=== PATIENT | male | born 2000 | race Two or more races ===

== ENCOUNTER 2021-01-03 12:49 | Emergency (ER) | payer OTHER ==
[2021-01-03] MEDS ORDERED: LORazepam 2 MG/ML VIAL IM STA (13:03)
--- NOTE | 2021-01-03 13:07 | ED Physician Documentation ---
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 He was aggressive at the scene and required restraint for transport to the hospital. Review of Systems Unable to obtain: Uncooperative PD PAST MEDICAL HISTORY - Past Medical History Cardiovascular: None Respiratory: None Neuro: None GI: None - Past Surgical History Past Surgical History: No - Present Medications Home Medications: Ambulatory Orders Medication Instructions Recorded Confirmed No Known Home Medications 01/03/21 01/03/21 - Allergies Allergies/Adverse Reactions: Allergies Allergy/AdvReac Type Severity Reaction Status Date / Time Penicillins Allergy Unknown Verified 01/03/21 15:36 - Living Situation Living Arrangement: reports: At home - Social History Substance Use and Type: Other (LSD) - Family History Family history: reports: Non contributory PD ED PE NORMAL - Vitals Vital signs reviewed: Yes (Tachycardic tachypneic and hypertensive) - General General: Well developed/nourished, Other (20-year-old male with a wide opened eye vacant stare repeatedly states L is D that was the. He is fighting restraints and periodically shouting.) - HEENT HEENT: Atraumatic, PERRL, EOMI - Neck Neck: Supple, no meningeal sign, No bony TTP - Cardiac Cardiac: RRR, No murmur - Respiratory Respiratory: No respiratory distress, Clear bilaterally - Abdomen Abdomen: Normal bowel sounds, Soft, Non tender, Non distended, No organomegaly - Back Back: No CVA TTP, No spinal TTP - Derm Derm: Normal color, Warm and dry, No rash - Extremities Extremities: No deformity, No edema - Neuro Neuro: Alert and oriented X 3, digital imaging technician 2-12 intact, No motor deficit, No sensory deficit, Normal speech Eye Opening: Spontaneous Motor: Localizes to Pain Verbal: Confused GCS Score: 13 - Psych Psych: Normal mood, Normal affect Results - Vitals Vitals: Vital Signs - 24 hr 01/03/21 01/03/21 01/03/21 12:59 13:45 14:00 Temperature 37.6 C Heart Rate 131 H 140 H 135 H Respiratory 29 H 16 18 Rate Blood Pressure 188/95 H 187/74 H 180/79 H O2 Saturation 100 99 99 01/03/21 01/03/21 01/03/21 14:21 14:45 15:30 Temperature 36.7 C Heart Rate 134 H 126 H 108 H Respiratory 14 18 18 Rate Blood Pressure 176/89 H 163/50 H 150/100 H O2 Saturation 100 99 99 Oxygen O2 Source Room air - Labs Labs: Laboratory Tests 01/03/21 01/03/21 01/03/21 13:22 13:22 13:22 WBC 11.8 H RBC 5.66 Hgb 15.9 Hct 48.5 MCV 85.7 MCH 28.1 MCHC 32.8 RDW 12.2 Plt Count 176 MPV 12.1 H Neut # (Auto) 10.5 H Lymph # (Auto) 0.6 L [place] # (Auto) 0.5 Eos # (Auto) 0.1 Baso # (Auto) 0.0 Absolute Nucleated RBC 0.00 Nucleated RBC % 0.0 Sodium 134 L Potassium 3.5 Chloride 99 L Carbon Dioxide 22 Anion Gap 13.0 BUN 12 Creatinine 1.1 Estimated GFR (MDRD) 85 L Glucose 171 H Calcium 9.8 Total Bilirubin 0.6 AST 44 H ALT 111 H Alkaline Phosphatase 81 Total Protein 7.5 Albumin 4.7 Globulin 2.8 Albumin/Globulin Ratio 1.7 Lipase 21 L TSH 1.61 Urine Color Urine Clarity Urine pH Ur Specific [place] Urine Protein Urine Glucose (UA) Urine Ketones Urine Occult Blood Urine Nitrite Urine Bilirubin Urine Urobilinogen Ur Leukocyte Esterase Urine RBC Urine WBC Ur Squamous Epith Cells Amorphous Sediment Urine Bacteria Urine Mucus Ur Microscopic Review Urine Culture Comments Salicylates < 6.0 Urine Opiates Screen Ur Oxycodone Screen Urine Methadone Screen Ur Propoxyphene Screen Acetaminophen < 10 L Ur Barbiturates Screen Ur Tricyclics Screen Ur Phencyclidine Scrn Ur Amphetamine Screen U Methamphetamines Scrn U Benzodiazepines Scrn Urine Cocaine Screen U Cannabinoids Screen Ethyl Alcohol < 5.0 01/03/21 14:25 WBC RBC Hgb Hct MCV MCH MCHC RDW Plt Count MPV Neut # (Auto) Lymph # (Auto) [place] # (Auto) Eos # (Auto) Baso # (Auto) Absolute Nucleated RBC Nucleated RBC % Sodium Potassium Chloride Carbon Dioxide Anion Gap BUN Creatinine Estimated GFR (MDRD) Glucose Calcium Total Bilirubin AST ALT Alkaline Phosphatase Total Protein Albumin Globulin Albumin/Globulin Ratio Lipase TSH Urine Color YELLOW Urine Clarity CLEAR Urine pH 6.0 Ur Specific [place] 1.010 Urine Protein 30 H Urine Glucose (UA) NEGATIVE Urine Ketones NEGATIVE Urine Occult Blood NEGATIVE Urine Nitrite NEGATIVE Urine Bilirubin NEGATIVE Urine Urobilinogen 0.2 (NORMAL) Ur Leukocyte Esterase NEGATIVE Urine RBC 0-5 Urine WBC 0-3 Ur Squamous Epith Cells RARE Squamous Amorphous Sediment Few Urine Bacteria Rare Urine Mucus Few Strands Ur Microscopic Review INDICATED Urine Culture Comments NOT INDICATED Salicylates Urine Opiates Screen NEGATIVE Ur Oxycodone Screen NEGATIVE Urine Methadone Screen NEGATIVE Ur Propoxyphene Screen NEGATIVE Acetaminophen Ur Barbiturates Screen NEGATIVE Ur Tricyclics Screen NEGATIVE Ur Phencyclidine Scrn NEGATIVE Ur Amphetamine Screen NEGATIVE U Methamphetamines Scrn NEGATIVE U Benzodiazepines Scrn NEGATIVE Urine Cocaine Screen NEGATIVE U Cannabinoids Screen NEGATIVE Ethyl Alcohol PD MEDICAL DECISION MAKING - ED course Complexity details: reviewed results, re-evaluated patient, considered differential, d/w patient ED course: He arrives to the emergency department continuing to fight his restraints. He is repeatedly saying LSD and he is not initially cooperative. He is administered a milligram of Ativan IM for chemical restraint of aggressive behavior. He is able to sleep briefly he awakens less disoriented and cooperati ve. He is accompanied now by his chief who is aware of his admission of use of LSD. He is no longer a threat to himself or to others and is not exhibiting aggressive behavior. He has been out of restraints and we will discharge him to the custody of his command. Departure - Departure Disposition: 01 Home, Self Care Clinical Impression: Substance abuse Instructions: ED Drug Abuse General Follow-Up: [facility] [Provider Group] Discharge Date/Time: 01/03/21 15:43 Face to Face for Restraints - Immediate Situation Face to Face Evaluation Date: 01/03/21 Face to Face Evaluation Time: 13:20 Restraint Situation: Locking Patient's Reactions to the Intervention: Physically safe - Behavioral Condition Attitude: Indifferent Behavior: Cooperative Orientation: Person, Place, Time, Situation Mood: Content Behavioral Condition Comments: recent dose of ativan seems to have helped patient's aggressive behavior. He is now cooperative. - Evaluation Review of Systems: 20-year-old male who appears to be responding to internal stimuli has a negative review of systems for illness in the past week. Pertinent History/Illicit Drugs/Medications/Results: 20-year-old male presents to the emergency department with confusion and psychosis which appears to be related to his stated ingestion of LSD. No other drugs of abuse are found in the patient's system on our tox screen. - Plan Need to Continue or Terminate Violent or Chemical Restraint: Following this [id number] confrontation the patient's restraints were eventually removed.
[2021-01-03 13:25] LABS: BASOPHILS % (AUTO) 0.3 %; EOSINOPHILS # (AUTO) 0.1 10^3/uL (0.0-0.7); EOSINOPHILS % (AUTO) 0.9 %; HCT - HEMATOCRIT 48.5 % (42.0-52.0); HGB - HEMOGLOBIN 15.9 g/dL (14.0-18.0); LYMPHOCYTES # (AUTO) 0.6 10^3/uL (1.5-3.5); LYMPHOCYTES % (AUTO) 5.2 %; MEAN CORPUSCULAR HEMOGLOBIN 28.1 pg (27.0-31.0); MEAN CORPUSCULAR HGB CONC 32.8 g/dL (32.0-36.0); MEAN CORPUSCULAR VOLUME 85.7 fL (80.0-94.0); MEAN PLATELET VOLUME 12.1 fL (7.4-11.4); MONOCYTES # (AUTO) 0.5 10^3/uL (0.0-1.0); NEUTROPHILS # (AUTO) 10.5 10^3/uL (1.5-6.6); NEUTROPHILS % (AUTO) 89.3 %; PLT - PLATELET COUNT 176 10^3/uL (130-450); RED BLOOD COUNT 5.66 10^6/uL (4.70-6.10); RED CELL DISTRIBUTION WIDTH 12.2 % (12.0-15.0); WHITE BLOOD COUNT 11.8 x10^3/uL (4.8-10.8)
[2021-01-03 13:41] LABS: ACETAMINOPHEN < 10 ug/mL (10-30); ALBUMIN 4.7 g/dL (3.2-5.5); ALBUMIN/GLOBULIN RATIO 1.7 (1.0-2.2); ALKALINE PHOSPHATASE 81 IU/L (42-121); ALT ALANINE AMINOTRANSFERASE 111 IU/L (10-60); AST ASPARTATE AMINOTRANSFERASE 44 IU/L (10-42); BILIRUBIN,TOTAL 0.6 mg/dL (0.2-1.0); BUN - BLOOD UREA NITROGEN 12 mg/dL (6-20); CALCIUM 9.8 mg/dL (8.5-10.3); CARBON DIOXIDE - CO2 22 mmol/L (21-32); CHLORIDE 99 mmol/L (101-111); CREATININE 1.1 mg/dL (0.6-1.2); ETOH - ETHANOL < 5.0 mg/dL; GFR - MDRD 85 (>89); GLUCOSE 171 mg/dL (70-100); LIPASE 21 U/L (22-51); POTASSIUM 3.5 mmol/L (3.5-5.0); SALICYLATE < 6.0 mg/dL; SODIUM 134 mmol/L (135-145); TOTAL PROTEIN 7.5 g/dL (6.7-8.2)
[2021-01-03 14:32] LABS: MUDS CUTOFF CONCENTRATIONS CUTOFF CONC BELOW:
[2021-01-03 14:36] LABS: BILIRUBIN,URINE NEGATIVE (NEGATIVE); GLUCOSE, URINE (UA) NEGATIVE (NEGATIVE); KETONES,URINE (UA) NEGATIVE (NEGATIVE); LEUKOCYTE ESTERASE, URINE NEGATIVE (NEGATIVE); NITRITE,URINE NEGATIVE (NEGATIVE); OCCULT BLOOD,URINE NEGATIVE (NEGATIVE); PROTEIN,URINE 30 mg/dL (NEGATIVE); UROBILINOGEN,URINE 0.2 (NORMAL) E.U./dL (NORMAL)
[2021-01-03 14:48] LABS: CLARITY,URINE CLEAR (CLEAR); WBC,URINE 0-3 /HPF (0-3)
[2021-01-03 14:49] LABS: AMORPHOUS SEDIMENT,UR Few /LPF; BACTERIA,URINE Rare /HPF (None Seen); MUCUS,URINE Few Strands; RBC,URINE 0-5 /HPF (0-5); SQUAMOUS EPITHELIAL CELL,UR RARE Squamous (<= Few)
[2021-01-03 14:50] LABS: AMPHETAMINE SCREEN,URINE NEGATIVE (NEGATIVE); BARBITURATE SCREEN,UR NEGATIVE (NEGATIVE); BENZODIAZEPINES SCREEN, URINE NEGATIVE (NEGATIVE); COCAINE SCREEN URINE NEGATIVE (NEGATIVE); METHADONE SCREEN, URINE NEGATIVE (NEGATIVE); METHAMPHETAMINES SCREEN, URINE NEGATIVE (NEGATIVE); OPIATE SCREEN, URINE NEGATIVE (NEGATIVE); OXYCODONE SCREEN, URINE NEGATIVE (NEGATIVE); PROPOXYPHENE SCREEN, URINE NEGATIVE (NEGATIVE); THC CANNABINOID SCREEN, URINE NEGATIVE (NEGATIVE); TRICYCLIC ANTIDEPRESSANT,URINE NEGATIVE (NEGATIVE)
[2021-01-03 15:42] VITALS: BP 150/100
== END 2021-01-03 15:43 | disposition home or self-care (01) ==
LOC: ED 12:49
DX: F16.10 Hallucinogen abuse, uncomplicated (principal); Z78.1 Physical restraint status
CPT/HCPCS: 36415; 80053; 80306; 80307; 80320; 80329; 81001; 83690; 84443; 85025; 96372; 99281; 99285; J2060; 81003; 87086